=== PATIENT | female | born 1980 | race Caucasian/White ===

== ENCOUNTER 2017-08-28 09:53 | Inpatient (IN) | payer BC ==
[~2017-08-28] VITALS: Ht 180.3 cm; Wt 101.6 kg
[2017-08-28] VITALS (7 sets, daily range): BP systolic 128–142; BP diastolic 58–82
[~2017-08-28 09:53] MED LIST: ENDOCET 5-3251 EACH PO; MOTRIN800 MG PO; Motrin PO; PREFERA-OB P1 TABLET PO
[2017-08-28 10:43] LABS: BASOPHIL (%) 0.4 % (0-1); EOSINOPHIL (%) 0.8 % (0-5); EOSINOPHIL COUNT 0.1 K/uL (0-0.3); HEMATOCRIT 35.1 % (36.0-46.0); HEMOGLOBIN 11.4 G/DL (11.9-15.5); IMMATURE GRANULOCYTE (%) 0.5 % (0.0-0.7); LYMPHOCYTE (%) 12.4 % (15-42); LYMPHOCYTE COUNT 1.3 K/uL (1.0-2.8); MCH 29.3 PG (29.0-34.0); MCHC 32.5 G/DL (30.0-36.0); MCV 90.2 FL (83-99); MONOCYTE (%) 6.1 % (3-12); MONOCYTE COUNT 0.6 K/uL (0-0.8); NEUTROPHIL (%) 79.8 % (45-76); NEUTROPHIL COUNT 8.2 K/uL (1.8-6.4); PLATELET COUNT 318 K/uL (156-360); RBC DIS.WIDTH-CV 14.7 % (11.8-14.6); RBC DIS.WIDTH-SD 48.7 % (39-53); RED BLOOD COUNT 3.89 M/uL (3.80-5.20); WHITE BLOOD COUNT 10.2 K/uL (4.1-10.2)
[2017-08-28] MEDS ORDERED: Motrin PO (12:01)
[2017-08-29 07:40] VITALS: BP 110/59
[2017-08-29 22:07] VITALS: BP 131/61
[2017-08-29 23:12] VITALS: BP 124/58
[2017-08-30 06:48] VITALS: BP 115/55
== END 2017-08-30 13:45 | disposition home or self-care (01) | DRG 775 ==
LOC: LDRP-OP 09:53 → 2WEST 09:54 → LDRP-OP 09-24 12:42
PROVIDERS: Nurse Practitioner
DX: O48.0 Post-term pregnancy (principal); Z3A.40 40 weeks gestation of pregnancy; Z37.0 Single live birth
CPT/HCPCS: 85025; J7120